=== PATIENT | female | born 1950 | race Hispanic/Latino ===

== ENCOUNTER 2017-07-24 07:31 | Emergency (ER) | payer OTHER, MEDICARE ==
[2017-07-24] MEDS ORDERED: DELTASONE PO ONE (07:55)
[2017-07-24] MEDS ORDERED: PEPCID PO ONE (07:55)
[2017-07-24] MEDS ORDERED: BENADRYL PO ONE (07:56)
--- NOTE | 2017-07-24 08:02 | Emergency Department Report ---
ED Rash HPI - HPI Chief Complaint: Skin Rash Stated Complaint: RASH, ITCHING Time Seen by Provider: 07/24/17 07:54 Duration: Today Location: Neck, Chest, Back, Upper Extremities Suspected Cause: Other Rash Symptoms: Yes Itching, No Facial Swelling, No Tongue/Oral Swelling, No Breathing Difficulties, No Choking Sensation, No Wheezing/Dyspnea, No Peeling, No Blistering, No Fever, No Lightheaded, No Malaise, No Myalgias Severity: moderate ED Review of Systems ROS: Stated complaint: RASH, ITCHING Other details as noted in HPI Constitutional: denies: chills, fever Eyes: denies: eye pain, eye discharge, vision change ENT: denies: ear pain, throat pain Respiratory: no symptoms reported. denies: shortness of breath, wheezing Cardiovascular: denies: chest pain, palpitations Endocrine: no symptoms reported Gastrointestinal: denies: abdominal pain, nausea, diarrhea Genitourinary: denies: urgency, dysuria, discharge Musculoskeletal: denies: back pain, joint swelling, arthralgia Skin: rash (red smooth itching ). denies: lesions Neurological: denies: headache, weakness, paresthesias Psychiatric: denies: anxiety, depression Hematological/Lymphatic: denies: easy bleeding, easy bruising ED Past Medical Hx - Past Medical History Previous Medical History?: Yes Additional medical history: thyroid, dvt left leg - Surgical History Past Surgical History?: Yes Additional Surgical History: feet, tonsil - Social History Smoking Status: Never Smoker Substance Use Type: None - Medications Home Medications: Home Medications Medication Instructions Recorded Confirmed Last Taken Type EPINEPHrine [Epipen 2-Blaine] 0.3 mg IJ ONCE PRN #1 auto.injct 07/24/17 Unknown Rx Famotidine [Pepcid] 20 mg PO BID #14 tablet 07/24/17 Unknown Rx hydrOXYzine HCL [Atarax] 25 mg PO Q8HR PRN #21 tablet 07/24/17 Unknown Rx predniSONE [Deltasone] 20 mg PO QDAY #5 tab 07/24/17 Unknown Rx Rash Exam - Exam General: Vital signs noted. No distress. Alert and acting appropriately. HEENT: No Periorbital Edema, No Conjuctival Injection, No Chemosis, No Perioral Edema, No Tongue Edema, No Uvular Edema, No Compromised Airway, No Drooling Lungs: Yes Good Air Exchange, No Wheezes, No Ronchi, No Stridor, No Cough, No Labored Respirations, No Retractions, No Use of Accessory Muscles, No Other Abnormal Lung Sounds Heart: Yes Regular, No Murmur Skin: Yes Urticarial Rash, Yes Erythema, No Maculopapular Rash, No Morbilliform rash, No Bulla(e), No Excoriations, No Weeping, No Tenderness, No Edema, No Encrustations, No Other Other: Positive: Abdomen Normal, Neurologic Normal, Musculoskeletal Normal ED Course Vital Signs 07/24/17 07:36 Temperature 97.5 F L Pulse Rate 112 H Respiratory 16 Rate Blood Pressure 100/61 O2 Sat by Pulse 98 Oximetry ED Medical Decision Making - Medical Decision Making pt is a 67 y/o w/f with hx of hypothyroidism, on synthroid, who presents for rash sudden onset this am symptoms include rash, itching, there is no sob no cp no dizziness , pt endorses recently completed clindamycin po rx by pcp for sinus infected diarrhea x 1 week since, itermittent saw pcp Dr. Olsen on monday awaiting lab results from same, plan: benadryl , pepcid, prednisone, will reassess after meds and repeat vital signs, if improved with dc with follow up with pcp today or tomorrow if not improving will obtain labs, ivfs, reassessment: rash improved, pt states "I feel much better itching resolved" lungs remain clear no wheezes no cp nad, dizziness no lightheadedness no n/v no abdominal pain Critical care attestation.: If time is entered above; I have spent that time in minutes in the direct care of this critically ill patient, excluding procedure time. ED Disposition Clinical Impression: Allergic reaction Qualifiers: Encounter type: initial encounter Qualified Code(s): T78.40XA - Allergy, unspecified, initial encounter Contact dermatitis Qualifiers: Contact dermatitis type: irritant Contact dermatitis trigger: unspecified trigger Qualified Code(s): L24.9 - Irritant contact dermatitis, unspecified cause Disposition: DC-01 TO HOME OR SELFCARE Is pt being admited?: No Does the pt Need Aspirin: No Condition: Good Instructions: Contact Dermatitis (ED), Allergies (ED), Epinephrine (Injection) Prescriptions: EPINEPHrine [Epipen 2-Blaine] 0.3 mg IJ ONCE PRN #1 auto.injct PRN Reason: severe allergic reaction Famotidine [Pepcid] 20 mg PO BID #14 tablet hydrOXYzine HCL [Atarax] 25 mg PO Q8HR PRN #21 tablet PRN Reason: Itching predniSONE [Deltasone] 20 mg PO QDAY #5 tab Referrals: PRIMARY CARE, [Primary Care Provider] - 3-5 Days Forms: Work/School Release Form(ED) Time of Disposition: 08:56
[2017-07-24 08:56] VITALS: BP 97/67
== END 2017-07-24 09:11 | disposition home or self-care (01) ==
LOC: ED 07:31
DX: L23.9 Allergic contact dermatitis, unspecified cause (principal)
CPT/HCPCS: 99282; J7512